=== PATIENT | male | born 1970 | race Caucasian/White ===

== ENCOUNTER 2017-06-16 15:53 | Emergency (ER) | payer OTHER ==
[2017-06-16 16:49] LABS: BASOPHIL % 0.5 % (0-2); PLATELET COUNT 189 x10^3mcL (130-400); RED CELL DISTRIBUTION WIDTH 13.2 % (11.5-14.5)
[2017-06-16 16:56] LABS: CALCIUM 8.1 mg/dL (8.5-10.1); CARBON DIOXIDE 23.3 mmol/L (21-32); CHLORIDE SERUM 104 mmol/L (98-107); CREATININE SERUM 0.7 mg/dL (0.7-1.3); GFR1 > 60 mL/min; GLUCOSE SERUM 124 mg/dL (74-106); POTASSIUM SERUM 3.1 mmol/L (3.5-5.1); SODIUM SERUM 140 mmol/L (136-145)
[2017-06-16 17:00] LABS: ALBUMIN 3.5 g/dL (3.4-5.0); ALKALINE PHOSPHATASE 78 U/L (46-116); ALT/SGPT 26 U/L (16-63); AST/SGOT 23 U/L (15-37); BILIRUBIN TOTAL 0.32 mg/dL (0.20-1.00); TOTAL PROTEIN, SERUM 6.8 g/dL (6.4-8.2)
[2017-06-16 18:15] LABS: AMPHETAMINE QUAL UR NONE DETECTED (NEG <=1000)
[2017-06-16 18:50] VITALS: BP 120/78
== END 2017-06-16 18:50 | disposition home or self-care (01) ==
LOC: ED 15:53
PROVIDERS: Emergency Medicine
DX: R00.0 Tachycardia, unspecified (principal); E86.0 Dehydration; T40.7X5A Adverse effect of cannabis (derivatives), initial encounter; E87.6 Hypokalemia; R06.02 Shortness of breath; Y92.89 Other specified places as the place of occurrence of the external cause
CPT/HCPCS: G0480; J7030

== ENCOUNTER 2017-07-30 08:48 | Emergency (ER) | payer OTHER ==
[~2017-07-30] VITALS: Ht 177.8 cm; Wt 50.8 kg
[2017-07-30 11:14] VITALS: BP 118/89
== END 2017-07-30 11:14 | disposition home or self-care (01) ==
LOC: ED 08:48
DX: S46.911A Strain of unspecified muscle, fascia and tendon at shoulder and upper arm level, right arm, initial encounter (principal); X58.XXXA Exposure to other specified factors, initial encounter; Y93.89 Activity, other specified; Y99.8 Other external cause status; Y92.89 Other specified places as the place of occurrence of the external cause
CPT/HCPCS: J1885

== ENCOUNTER 2017-07-31 09:30 | Emergency (ER) | payer OTHER ==
[2017-07-31 09:49] VITALS: BP 104/67
== END 2017-07-31 10:47 | disposition home or self-care (01) ==
LOC: ED 09:30
DX: M75.91 Shoulder lesion, unspecified, right shoulder (principal)

== ENCOUNTER 2019-06-07 19:19 | Emergency (ER) | payer OTHER ==
[~2019-06-07] VITALS: Ht 177.8 cm; Wt 53.2 kg
[2019-06-07 19:37] VITALS: Ht 177.8 cm; Wt 53.2 kg
[2019-06-07 21:47] VITALS: BP 150/89
== END 2019-06-07 21:48 | disposition home or self-care (01) ==
LOC: ED 19:19
DX: H66.92 Otitis media, unspecified, left ear (principal); J06.9 Acute upper respiratory infection, unspecified; R03.0 Elevated blood-pressure reading, without diagnosis of hypertension; F15.90 Other stimulant use, unspecified, uncomplicated; Z98.890 Other specified postprocedural states